=== PATIENT | male | born 1965 | race African-American/Black ===

== ENCOUNTER → 2016-10-09 | Outpatient (CLI) | payer BC ==
[~2016-10-09] MED LIST: HYDROCODON-ACE1 EAC7 PO; MOBIC PO; NO MEDICATIONS
--- NOTE | ~2016-10-09 | CR181 ---
[facility] A Service of [facility] & [facility] RADIOLOGY TEXT RESULTS PATIENT: CHRISTAL CLIFTON LOCATION: [facility] : 67 UNIT #: [id number] AGE: [address]: Haritha Kemp APRN SEX: M ORDER DR: [id number] [facility] [address] [place], [place] [address] [id number] O MR#: [id number] Acc #: [id number] NAME: CHRISTAL CLIFTON : 1965 SEX: M STUDY DATE/TIME: 10/09/2016 10:13 UNIT: [facility] ROOM: STUDY DESCRIPTION: CR Lumbar Spine 2 or 3 Views Attending Physician: Haritha Kemp Aprn Referring Physician: Haritha Kemp Aprn Ordering Physician: Haritha Kemp Aprn Primary Care Physician: Ember Bernal M.D. MEDICAL IMAGING REPORT This report is preliminary unless electronic signature is present EXAM Lumbar spine 3 views 10/09/2016 HISTORY Low back pain status post fall off ladder 3 days ago. Fell off roof. Pain on left side. FINDINGS AP and lateral projections of the lumbar segment show good mineralization of both anterior and posterior elements. They are all anatomically normal without indication of fracture, dislocation, or malignant change of a sclerotic or lytic type. There is no congenital defect noted. The sacroiliac joints are normal. IMPRESSION Normal lumbar spine. Dictated by... Basil Lomax M.D. THIS IS AN ELECTRONICALLY VERIFIED REPORT Basil Lomax M.D. at 10/12/2016 6:07 AM KRT/pcl TD: 10/09/2016 20:32 JOB #: [id number] MEDICAL IMAGING REPORT Page 1 of 1 COPY
--- NOTE | ~2016-10-09 | CR206 ---
[facility] A Service of [facility] & [facility] RADIOLOGY TEXT RESULTS PATIENT: CHRISTAL CLIFTON LOCATION: [facility] : 67 UNIT #: [id number] AGE: [address]: Haritha Kemp APRN SEX: M ORDER DR: [id number] [facility] [address] [place], [place] [address] [id number] O MR#: [id number] Acc #: [id number] NAME: CHRISTAL CLIFTON : 1965 SEX: M STUDY DATE/TIME: 10/09/2016 10:14 UNIT: [facility] ROOM: STUDY DESCRIPTION: CR Pelvis 1 or 2 Views Attending Physician: Haritha Kemp Aprn Referring Physician: Haritha Kemp Aprn Ordering Physician: Haritha Kemp Aprn Primary Care Physician: Ember Bernal M.D. MEDICAL IMAGING REPORT This report is preliminary unless electronic signature is present EXAM AP pelvis 10/09/2016 HISTORY Pelvic pain status post fall off ladder 3 days ago. Fell off roof. FINDINGS AP, supine examination of the pelvis shows satisfactory mineralization of the bony pelvis. The sacroiliac joints are normal. There is no indication of congenital defect, fracture, or dislocation at the articular anatomy of the sacral segments or of the hip joints. No malignant, lytic, or blastic change is present. IMPRESSION Normal pelvis. Dictated by... Basil Lomax M.D. THIS IS AN ELECTRONICALLY VERIFIED REPORT Basil Lomax M.D. at 10/12/2016 6:07 AM KRT/pcl TD: 10/09/2016 20:33 JOB #: [id number] MEDICAL IMAGING REPORT Page 1 of 1 COPY
== END | disposition home or self-care (01) ==
LOC: CRAD 09:43
DX: M54.5 Low back pain (principal)
CPT/HCPCS: 72100; 72170